=== PATIENT | male | born 1980 | race Caucasian/White ===

== ENCOUNTER 2021-01-31 12:19 | Emergency (ER) | payer MEDICAID ==
[~2021-01-31] VITALS: Ht 170.2 cm; Wt 107.9 kg
[2021-01-31 12:57] VITALS: BP 135/80
--- NOTE | 2021-01-31 13:35 | RAD ---
XR FOOT_LEFT 3 VIEWS History: Reason: 5 toe pain w/ wb, no known injury / Spl. Instructions: / History: Technique: 3 views left foot. Comparison: None. Findings: Normal alignment. No fracture. Soft tissues unremarkable. Impression: 1. No acute osseous abnormality. Electronically signed by: Aleksandar Marley DO (01/31/2021 1:33 PM) [id number]
[2021-01-31] MEDS ORDERED: CLOT12CR2 TP (13:45)
--- NOTE | 2021-01-31 13:45 | ED.ADGEN ---
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 Patient denies any known injury. He states that there is no pain when he is at rest however when he stands the pain shoots to 8 out of 10. Patient denies any difficulty with ambulation. He reports that the toe does itch at times. He denies any decreased sensation, numbness, or tingling of the affected foot and toe. Review of Systems: Review of Systems: Complete ROS is negative unless otherwise noted in HPI. Allergies: Allergies: Allergies Coded Allergies Type Severity Reaction Last Updated Verified No Known Drug Allergies 01/31/21 No Physical Exam: PE: Constitutional: Well developed, well nourished, no acute distress, non-toxic appearance, deaf. [] HENT: Normocephalic, atraumatic, bilateral external ears normal, nose normal. [] Eyes: PERRLA, EOMI, conjunctiva normal, no discharge. [] Neck: Normal range of motion, no stridor. [] Cardiovascular:Heart rate regular rhythm Lungs & Thorax: Respirations even and unlabored, no retractions, no respiratory distress Skin: Warm, dry, no erythema, no rash; yellow discoloration and scaly appearance of the medial aspect of the medial right fifth toe concerning for tinea pedis [] Extremities: Right foot, no bony tenderness or deformity, 2+ pedal pulse, sensation intact, no cyanosis, ROM intact, no edema. [] Neurologic: Alert and oriented X 3, normal motor, normal sensory, no focal deficits noted. [] Psychologic: Affect normal, judgement normal, mood normal. [] Current Patient Data: Vital Signs: Vital Signs Date Time Temp Pulse Resp B/P (MAP) Pulse Ox O2 Delivery O2 Flow Rate FiO2 01/31/21 12:57 97.9 84 20 135/80 (98) 97 Room Air 97.9 EKG: EKG: [] Heart Score: C/O Chest Pain: No Risk Factors: Risk Factors: DM, Current or recent (<one month) smoker, HTN, HLP, family history of CAD, obesity. Risk Scores: Score 0 - 3: 2.5% MACE over next 6 weeks - Discharge Home Score 4 - 6: 20.3% MACE over next 6 weeks - Admit for Clinical Observation Score 7 - 10: 72.7% MACE over next 6 weeks - Early Invasive Strategies Radiology/Procedures: Radiology/Procedures: PROCEDURE: FOOT LEFT 3V XR FOOT_LEFT 3 VIEWS History: Reason: 5 toe pain w/ wb, no known injury / Spl. Instructions: / History: Technique: 3 views left foot. Comparison: None. Findings: Normal alignment. No fracture. Soft tissues unremarkable. Impression: 1. No acute osseous abnormality. Electronically signed by: Aleksandar Marley DO (01/31/2021 1:33 PM) [id number] [] Course & Med Decision Making: Course & Med Decision Making Pertinent Labs and Imaging studies reviewed. (See chart for details) [][] Patients Care and treatment plan provided by ER Nurse Practitioner. I was available for consult. Patient's chart reviewed. Analia Disclaimer: Analia Disclaimer: This electronic medical record was generated, in whole or in part, using a voice recognition dictation system. Departure Departure Impression: Primary Impression: Tinea pedis of right foot Additional Impression: Pain in toe of right foot Disposition: 01 HOME / SELF CARE / HOMELESS Condition: STABLE Referrals: NO PCP (PCP) Patient Instructions: Athlete's Foot, [id number] Additional Instructions: Your x-ray today did not reveal any bony abnormalities. Fill the prescription and use it as directed. Leave your feet uncovered and open to air as often as possible. Follow-up with your primary care doctor in 1 to 2 days to have your foot reevaluated, return to the ER if symptoms worsen or fever develops. [facility] [address] [place] [address] [facility] [address] [place] [address] [facility] [address] [facility] [place] [address] [facility] [address] [place] [address] [facility] [address] [place] [address] [address] [place] [address] [address] [place] [address] [facility] [address] [place] [address] [facility] [address] [place] [address] [facility] [address] [place] [address] Scripts Clotrimazole (LOTRIMIN AF) 12 Gm Cream..g. 1 AMPARO TP BID for 21 Days, #24 GM 0 Refills Prov: DARON JACINTO APRN 01/31/21 Problem Qualifiers DARON JACINTO APRN Jan 31, 2021 13:45 JOBY HURLEY DO Feb 04, 2021 18:23
== END 2021-01-31 14:00 | disposition home or self-care (01) ==
LOC: ER 12:19
DX: B35.3 Tinea pedis (principal)
CPT/HCPCS: 73630; 99283